=== PATIENT | female | born 1935 | race Caucasian/White ===

== ENCOUNTER 2016-06-15 12:45 | Outpatient (CLI) | payer MEDICARE, BC | END 2016-06-15 12:46 | disposition home or self-care (01) | DRG 605 | LOC: CONVCARE 12:45 | PROVIDERS: ATTEND Orthopaedic Surgery | DX: S80.01XA Contusion of right knee, initial encounter (principal); Z96.641 Presence of right artificial hip joint; Z47.1 Aftercare following joint replacement surgery | CPT/HCPCS: 73502; 73560 ==